=== PATIENT | male | born 1940 | race Caucasian/White ===

== ENCOUNTER 2020-08-28 21:03 | Inpatient (IN) | payer MEDICARE, BC ==
[2020-08-28 22:00] LABS: #Eosinphils 0.1 10x3/uL (0.0-0.5); #Neutrophils 5.2 10x3/uL (1.5-8.4); %Basophils 0.4 % (0.0-2.0); %Eosinophils 1.4 % (0.0-6.0); %Lymphocytes 27.7 % (18.0-47.0); %Monocytes 10.8 % (0.0-10.0); %Neutrophils 58.3 % (40.0-75.0); Hemoglobin 14.9 g/dL (13.5-17.5); Mean Corpuscular HGB CONC 35.6 g/dL (32.0-36.0); Mean Corpuscular Hemoglobin 34.2 pg (27.0-33.0); Mean Corpuscular Volume 96.1 fl (81.2-95.1); Mean Platelet Volume 9.2 fl (7.4-10.4); Platelet Count 337 10x3/uL (150-450); RBC Distribution Width 12.7 % (11.5-14.5); Red Blood Cell (RBC) Count 4.36 10x6/uL (4.32-5.72)
[2020-08-28 22:09] LABS: Bilirubin Neg (Negative); Blood, Urine Negative (Negative); Clarity Clear (Clear); Glucose, Urine (Dipstick) Normal (Negative); Ketone, Urine Negative (Negative); Leukocyte Negative (Negative); Nitrite Negative (Negative); Protein, Urine (Dipstick) Negative (Neg-Trace); Urobilinogen Normal mg/dL (Less than 2)
[2020-08-28 22:12] LABS: Acetaminophen Less than 6.0 mcg/mL (10.0-30.0); Alcohol 13 mg/dL (Less than 10); Salicylate Less than 8.0 mg/dL (15.0-30.0)
[2020-08-28 22:13] LABS: ALT (SGPT) 26 U/L (8-55); AST (SGOT) 20 U/L (5-34); Albumin 4.6 g/dL (3.4-4.8); Alkaline Phosphatase 91 U/L (40-110); Anion Gap 17 mmol/L (10-20); BUN (Urea Nitrogen) 19 mg/dL (8.4-25.7); Bilirubin, Total 0.5 mg/dL (0.2-1.2); Calc. Creatinine Clearance 0 mL/min (70-130); Calcium 10.4 mg/dL (7.8-10.44); Carbon Dioxide 24 mmol/L (23-31); Chloride 96 mmol/L (98-107); Globulin 2.5 g/dL (2.4-3.5); Glucose 127 mg/dL (83-110); Potassium 4.5 mmol/L (3.5-5.1); Protein, Total 7.1 g/dL (5.8-8.1); Sodium 132 mmol/L (136-145)
[2020-08-28 22:18] LABS: Amphetamine Not Detected (NotDetected); Barbiturates Screen Not Detected (NotDetected); Benzodiazepine Screen Detected (NotDetected); Cocaine Metabolite Screen Not Detected (NotDetected); Methadone Not Detected (NotDetected); Methamphetamine Not Detected (NotDetected); Opiate Screen Not Detected (NotDetected); Oxycodone Screen Not Detected (NotDetected); Phencyclidine (PCP) Not Detected (NotDetected); THC/Cannabinoid Screen Not Detected (NotDetected); Tricyclic Screen Not Detected (NotDetected)
[2020-08-28] MEDS ORDERED: Labetalol HCl 100 MG/20 ML VIAL ONE (22:33)
[2020-08-28] MEDS ORDERED: Acetaminophen 325 MG TAB PO PRN (23:37)
[2020-08-28] MEDS ORDERED: Senokot S 8.6-50 MG TAB PO PRN (23:37)
[2020-08-28] MEDS ORDERED: Calcium Carbonate 500 MG ChewTAB PO PRN (23:37)
[2020-08-28] MEDS ORDERED: Ondansetron PF 4 MG/2 ML Vial IVP PRN (23:37)
[2020-08-28] MEDS ORDERED: Sodium Chloride 0.9% 1,000 ML IV SCH (23:45)
[2020-08-29] MEDS: Thiamine HCl 200 MG/2 ML VIAL SLOW IVP SCH (01:11)
[2020-08-29] MEDS ORDERED: Amlodipine 10 MG TAB PO SCH (01:30)
[2020-08-29] MEDS ORDERED: Lorazepam 2 MG/ML VIAL ONE (02:30)
[2020-08-29] MEDS ORDERED: Lorazepam 2 MG/ML VIAL SLOW IVP SCH (02:45)
[2020-08-29 06:55] LABS: Anion Gap 11 mmol/L (10-20); BUN (Urea Nitrogen) 18 mg/dL (8.4-25.7); Calc. Creatinine Clearance 106 mL/min (70-130); Calcium 9.4 mg/dL (7.8-10.44); Carbon Dioxide 25 mmol/L (23-31); Cardiac Risk 2.7 (Less than 4.5); Chloride 99 mmol/L (98-107); Cholesterol 134 mg/dl (< 200 Desired); Glucose 139 mg/dL (83-110); HDL Cholesterol 49 mg/dL (>60 Neg Risk); LDL Cholesterol, Calculated 78 mg/dL; Potassium 4.9 mmol/L (3.5-5.1); Sodium 130 mmol/L (136-145); Triglycerides 33 mg/dL (Less than 150)
[2020-08-29 08:58] LABS: Hemoglobin A1c 6.3 % (4.0-6.0)
[2020-08-29] MEDS ORDERED: BIOTIN 10000 MCG PO SCH (09:00)
[2020-08-29] MEDS ORDERED: [UNRECOGNIZED DRUG - OTHER] PO SCH (09:00)
[2020-08-29] MEDS ORDERED: LUTEIN PO SCH (09:00)
[2020-08-29] MEDS ORDERED: GELATIN PO SCH (09:00)
[2020-08-29] MEDS ORDERED: ZEAXANTHIN PO SCH (09:00)
[2020-08-29] MEDS: Aspirin 325 mg Enteric Coated Tablet PO SCH (10:26)
[2020-08-29] MEDS: Enoxaparin Sodium 40 MG/0.4 ML SYRINGE SC SCH (10:26)
[2020-08-29] MEDS: Multivitamin W/ Minerals 1 TAB PO SCH (10:27)
[2020-08-29] MEDS: Cholecalciferol 1,000 UNITS (25 MCG) TAB PO SCH (10:27)
[2020-08-29] MEDS: Folic Acid 1 MG TAB PO SCH (10:27)
[2020-08-29] MEDS: Levothyroxine Sodium 75 MCG TAB PO SCH (10:27)
[2020-08-29] MEDS: Ascorbic Acid 500 mg Chewable Tablet PO SCH (10:27)
[2020-08-29] MEDS: Zinc Sulfate 220 MG CAP PO SCH (10:27)
[2020-08-29] MEDS: Cyanocobalamin (Vitamin B-12) 1,000 MCG TAB PO SCH (10:28)
[2020-08-29] MEDS: Losartan 25 MG TAB PO SCH ×2 (10:28→20:57)
[2020-08-29] MEDS: Sodium Bicarbonate Tab 325 MG TAB PO SCH ×3 (10:29→20:57)
[2020-08-29] MEDS: Famotidine 20 MG TAB PO SCH ×2 (10:29→20:57)
[2020-08-29] MEDS: Rosuvastatin 10 MG TAB PO SCH (10:29)
[2020-08-29 12:17] LABS: Vitamin B12 Greater than 2000 pg/mL (211-911)
[2020-08-29] MEDS: Vitamin A 10,000 UNITS CAP PO SCH (12:38)
[2020-08-29 16:18] LABS: SARS-CoV-2 PCR by NAA Not Detected (NotDetected)
[2020-08-29] MEDS ORDERED: Haloperidol Lactate 5 MG/ML VIAL SLOW IVP PRN (18:25)
[2020-08-29] MEDS: Mirtazapine 15 MG TAB PO SCH (20:57)
[2020-08-29] MEDS ORDERED: Lorazepam 2 MG/ML VIAL SLOW IVP PRN (23:43)
[2020-08-30 02:32] VITALS: BMI 29.7
[2020-08-30] MEDS: Thiamine HCl 200 MG/2 ML VIAL SLOW IVP SCH (02:33)
[2020-08-30] MEDS: Ascorbic Acid 500 mg Chewable Tablet PO SCH (08:19)
[2020-08-30] MEDS: Multivitamin W/ Minerals 1 TAB PO SCH (08:20)
[2020-08-30] MEDS: Cholecalciferol 1,000 UNITS (25 MCG) TAB PO SCH (08:20)
[2020-08-30] MEDS: Famotidine 20 MG TAB PO SCH ×2 (08:23→20:31)
[2020-08-30] MEDS: Cyanocobalamin (Vitamin B-12) 1,000 MCG TAB PO SCH (08:23)
[2020-08-30] MEDS: Levothyroxine Sodium 75 MCG TAB PO SCH (08:23)
[2020-08-30] MEDS: Losartan 25 MG TAB PO SCH ×2 (08:23→20:31)
[2020-08-30] MEDS: Aspirin 325 mg Enteric Coated Tablet PO SCH (08:23)
[2020-08-30] MEDS: Zinc Sulfate 220 MG CAP PO SCH (08:24)
[2020-08-30] MEDS: Sodium Bicarbonate Tab 325 MG TAB PO SCH ×4 (08:24→20:31)
[2020-08-30] MEDS: Rosuvastatin 10 MG TAB PO SCH (08:24)
[2020-08-30] MEDS: Vitamin A 10,000 UNITS CAP PO SCH (08:41)
[2020-08-30] MEDS: Enoxaparin Sodium 40 MG/0.4 ML SYRINGE SC SCH (08:41)
[2020-08-30] MEDS: Folic Acid 1 MG TAB PO SCH (08:41)
[2020-08-30 13:51] LABS: #Eosinphils 0.1 10x3/uL (0.0-0.5); #Monocytes 0.8 10x3/uL (0.0-1.1); #Neutrophils 4.5 10x3/uL (1.5-8.4); %Basophils 0.5 % (0.0-2.0); %Eosinophils 1.3 % (0.0-6.0); %Monocytes 9.7 % (0.0-10.0); %Neutrophils 58.7 % (40.0-75.0); Hemoglobin 13.5 g/dL (13.5-17.5); Mean Corpuscular HGB CONC 35.2 g/dL (32.0-36.0); Mean Corpuscular Hemoglobin 33.5 pg (27.0-33.0); Mean Platelet Volume 8.8 fl (7.4-10.4); Platelet Count 326 10x3/uL (150-450); RBC Distribution Width 12.9 % (11.5-14.5); Red Blood Cell (RBC) Count 4.03 10x6/uL (4.32-5.72); White Blood Cell (WBC) Count 7.7 10x3/uL (3.5-10.5)
[2020-08-30 14:07] LABS: Anion Gap 16 mmol/L (10-20); BUN (Urea Nitrogen) 21 mg/dL (8.4-25.7); Calc. Creatinine Clearance 104 mL/min (70-130); Calcium 9.2 mg/dL (7.8-10.44); Carbon Dioxide 22 mmol/L (23-31); Chloride 96 mmol/L (98-107); Glucose 117 mg/dL (83-110); Sodium 130 mmol/L (136-145)
[2020-08-30] MEDS: Mirtazapine 15 MG TAB PO SCH (20:31)
[2020-08-31] MEDS: Thiamine HCl 200 MG/2 ML VIAL SLOW IVP SCH (08:16)
[2020-08-31 08:45] LABS: Anion Gap 16 mmol/L (10-20); BUN (Urea Nitrogen) 18 mg/dL (8.4-25.7); Calc. Creatinine Clearance 108 mL/min (70-130); Calcium 9.7 mg/dL (7.8-10.44); Carbon Dioxide 23 mmol/L (23-31); Chloride 98 mmol/L (98-107); Glucose 120 mg/dL (83-110); Potassium 3.9 mmol/L (3.5-5.1); Sodium 133 mmol/L (136-145)
[2020-08-31] MEDS: Cyanocobalamin (Vitamin B-12) 1,000 MCG TAB PO SCH (08:53)
[2020-08-31] MEDS: Losartan 25 MG TAB PO SCH (08:54)
[2020-08-31] MEDS: Cholecalciferol 1,000 UNITS (25 MCG) TAB PO SCH (08:54)
[2020-08-31] MEDS: Rosuvastatin 10 MG TAB PO SCH (08:55)
[2020-08-31] MEDS: Sodium Bicarbonate Tab 325 MG TAB PO SCH (08:55)
[2020-08-31] MEDS: Ascorbic Acid 500 mg Chewable Tablet PO SCH (08:55)
[2020-08-31] MEDS: Aspirin 325 mg Enteric Coated Tablet PO SCH (08:55)
[2020-08-31] MEDS: Famotidine 20 MG TAB PO SCH (08:56)
[2020-08-31] MEDS: Levothyroxine Sodium 75 MCG TAB PO SCH (08:56)
[2020-08-31] MEDS: Folic Acid 1 MG TAB PO SCH (08:57)
[2020-08-31] MEDS: Enoxaparin Sodium 40 MG/0.4 ML SYRINGE SC SCH (08:57)
[2020-08-31] MEDS: Multivitamin W/ Minerals 1 TAB PO SCH (08:57)
[2020-08-31] MEDS: Zinc Sulfate 220 MG CAP PO SCH (08:59)
[2020-08-31] MEDS ORDERED: VITAMIN A 10000 UNIT PO SCH (09:00)
[2020-08-31] MEDS ORDERED: Thiamine HCl 200 MG/2 ML VIAL SLOW IVP SCH (09:00)
[2020-08-31 14:24] VITALS: BP 123/85; TEMP 97
== END 2020-08-31 15:20 | disposition home or self-care (01) | DRG 305 ==
LOC: CSHERS 21:03 → CSHTELE 08-29 00:21 → OBSVTOIN 08-29 17:01
PROVIDERS: ADMIT Student in an Organized Health Care Education/Training Program; ATTEND Family Medicine
DX: I16.0 Hypertensive urgency (principal); E87.1 Hypo-osmolality and hyponatremia; R45.851 Suicidal ideations; G93.49 Other encephalopathy; E78.5 Hyperlipidemia, unspecified; Z98.890 Other specified postprocedural states; Z95.828 Presence of other vascular implants and grafts; R73.9 Hyperglycemia, unspecified; I77.9 Disorder of arteries and arterioles, unspecified; M79.89 Other specified soft tissue disorders; J30.1 Allergic rhinitis due to pollen; R41.0 Disorientation, unspecified; M19.90 Unspecified osteoarthritis, unspecified site; Z20.822 Contact with and (suspected) exposure to COVID-19
CPT/HCPCS: 36415; 70450; 70551; 71045; 80048; 80053; 80061; 80306; 80307; 81003; 82607; 83036; 83605; 84443; 84484; 85025; 87635; 93005; 93306; 93880; 96372; 96374; G0378; J1630; J1650; J2060; J3411; J7050; U0003; U0005

== ENCOUNTER 2021-12-13 20:19 | Emergency (ER) | payer MEDICARE, BC ==
[2021-12-13 21:11] LABS: #Basophils 0.1 10x3/uL (0.0-0.2); #Eosinphils 0.1 10x3/uL (0.0-0.5); #Monocytes 1.1 10x3/uL (0.0-1.1); #Neutrophils 6.1 10x3/uL (1.5-8.4); %Basophils 0.7 % (0.0-2.0); %Eosinophils 1.2 % (0.0-6.0); %Lymphocytes 21.4 % (18.0-47.0); %Monocytes 11.8 % (0.0-10.0); %Neutrophils 64.1 % (40.0-75.0); Hemoglobin 13.4 g/dL (13.5-17.5); Mean Corpuscular HGB CONC 35.7 g/dL (32.0-36.0); Mean Corpuscular Hemoglobin 29.7 pg (27.0-33.0); Mean Corpuscular Volume 83.1 fl (81.2-95.1); Mean Platelet Volume 8.6 fl (7.4-10.4); Platelet Count 366 10x3/uL (150-450); RBC Distribution Width 14.7 % (11.5-14.5); Red Blood Cell (RBC) Count 4.51 10x6/uL (4.32-5.72); White Blood Cell (WBC) Count 9.5 10x3/uL (3.5-10.5)
[2021-12-13 21:22] LABS: PTT 29.8 sec (22.0-33.0); Prothrombin Time 10.4 sec (9.5-12.1)
[2021-12-13 21:25] LABS: ALT (SGPT) 27 U/L (8-55); AST (SGOT) 20 U/L (5-34); Albumin 4.1 g/dL (3.4-4.8); Alkaline Phosphatase 99 U/L (40-110); Anion Gap 14 mmol/L (10-20); BUN (Urea Nitrogen) 30 mg/dL (8.4-25.7); Bilirubin, Total 0.4 mg/dL (0.2-1.2); Calc. Creatinine Clearance 0 mL/min (70-130); Calcium 9.9 mg/dL (7.8-10.44); Carbon Dioxide 23 mmol/L (23-31); Chloride 91 mmol/L (98-107); Estimated GFR 89; Globulin 3.1 g/dL (2.4-3.5); Glucose 165 mg/dL (83-110); Potassium 3.9 mmol/L (3.5-5.1); Protein, Total 7.2 g/dL (5.8-8.1); Sodium 124 mmol/L (136-145)
[2021-12-13] MEDS ORDERED: Bacitracin 1 PK ONE ×2 (22:19→22:40)
[2021-12-13] MEDS ORDERED: Boostrix 0.5 ML (Tdap) VIAL ONE (22:29)
== END 2021-12-13 22:42 | disposition home or self-care (01) ==
LOC: CSHERS 20:19
DX: S51.811A Laceration without foreign body of right forearm, initial encounter (principal); S00.03XA Contusion of scalp, initial encounter; E87.1 Hypo-osmolality and hyponatremia; I10 Essential (primary) hypertension; W07.XXXA Fall from chair, initial encounter
CPT/HCPCS: 12002; 70450; 80053; 85025; 85610; 85730; 90471; 90715; 93005

== ENCOUNTER 2022-11-11 11:24 | Emergency (ER) | payer MEDICARE, BC ==
[~2022-11-11 11:24] MED LIST: Iopamidol 300 61% 100 ML VIAL FS ONE
[2022-11-11 12:08] LABS: #Basophils 0.1 10x3/uL (0.0-0.2); #Eosinphils 0.1 10x3/uL (0.0-0.5); #Monocytes 0.8 10x3/uL (0.0-1.1); #Neutrophils 5.6 10x3/uL (1.5-8.4); %Basophils 0.7 % (0.0-2.0); %Eosinophils 0.8 % (0.0-6.0); %Lymphocytes 14.1 % (18.0-47.0); %Monocytes 10.8 % (0.0-10.0); %Neutrophils 72.9 % (40.0-75.0); Hemoglobin 13.7 g/dL (13.5-17.5); Mean Corpuscular HGB CONC 37.3 g/dL (32.0-36.0); Mean Corpuscular Hemoglobin 32.9 pg (27.0-33.0); Platelet Count 456 10x3/uL (150-450); Red Blood Cell (RBC) Count 4.17 10x6/uL (4.32-5.72); White Blood Cell (WBC) Count 7.6 10x3/uL (3.5-10.5)
[2022-11-11 12:28] LABS: ALT (SGPT) 1176 U/L (8-55); AST (SGOT) 1534 U/L (5-34); Albumin 3.5 g/dL (3.4-4.8); Alkaline Phosphatase 1402 U/L (40-110); Anion Gap 17 mmol/L (10-20); BUN (Urea Nitrogen) 22 mg/dL (8.4-25.7); Bilirubin, Total 11.1 mg/dL (0.2-1.2); Calc. Creatinine Clearance 0 mL/min (70-130); Calcium 9.2 mg/dL (7.8-10.44); Carbon Dioxide 22 mmol/L (23-31); Chloride 92 mmol/L (98-107); Estimated GFR 87; Globulin 2.2 g/dL (2.4-3.5); Glucose 147 mg/dL (83-110); Potassium 4.7 mmol/L (3.5-5.1); Protein, Total 5.7 g/dL (5.8-8.1); Sodium 126 mmol/L (136-145)
[2022-11-11 13:49] LABS: INR-International Normal Ratio 1.1; PTT 28.3 sec (22.0-33.0); Prothrombin Time 11.4 sec (9.5-12.1)
[2022-11-11] MEDS ORDERED: hydrOXYzine 25 MG TAB ONE (15:44)
[2022-11-11 23:12] LABS: HBCM Index 0.05 S/CO (0-0.79); HBSAg Index 0.13 S/CO (0-0.99); Hep A IgM AB Non-Reactive S/CO (NonReactive); Hep A IgM S/CO 0.13 S/CO (0-0.79); Hep B Surf Ag Non-Reactive S/CO (NonReactive); Hep C IgG Ab Non-Reactive S/CO (NonReactive); Hep C Index 0.05 S/CO (0-0.79); Hepatitis B Core IgM Abs Non-Reactive S/CO (NonReactive)
== END 2022-11-11 19:29 | disposition short-term general hospital (02) ==
LOC: CSHERS 11:24
DX: R17 Unspecified jaundice (principal); K83.1 Obstruction of bile duct; R79.89 Other specified abnormal findings of blood chemistry; I25.10 Atherosclerotic heart disease of native coronary artery without angina pectoris; I10 Essential (primary) hypertension; E78.5 Hyperlipidemia, unspecified; Z79.82 Long term (current) use of aspirin; Z79.899 Other long term (current) drug therapy
CPT/HCPCS: 36415; 70450; 71045; 74177; 76705; 80053; 80074; 82140; 83690; 83880; 84484; 85025; 85610; 85730; 93005; 96360; 96361; Q9967

== ENCOUNTER → 2023-03-10 | Emergency (ER) | payer MEDICARE, BC ==
[~2023-03-10] MED LIST changes: +Aspirin Chewable 81 MG TAB ONE; +Aspirin Chewable 81 MG TAB PO SCH; +Cefepime 2 GM VIAL ONE; +Donepezil HCl 5 MG TAB PO SCH; +Levothyroxine Sodium 75 MCG TAB PO SCH; +Loratadine 10 MG TAB PO SCH; +Losartan 50 MG TAB PO SCH; +Rosuvastatin 20 MG TAB PO SCH; +Tamsulosin HCl 0.4 MG CAP ONE; +Tamsulosin HCl 0.4 MG CAP PO SCH; +Vancomycin 1 GM in Sodium Chloride 0.9% 250 ML 250 ML IVPB SCH; +Vancomycin 1.5 GRAM/300 ML BAG 1.5 GM in Premix 1 BAG IVPB SCH
[2023-03-10 12:14] LABS: Actual Bicarbonate (HCO3v) 16.8 mEq/L (22-28); Base Excess -6.7 mEq/L (-2 - +2); Calcium, Ionized (venous) 0.98 mmol/L (1.16-1.32); Chloride (VBG) 96 mmol/L (98-106); Hematocrit-VBG 44 % (42.0-52.0); Hemoglobin (Hb) 14.8 g/dL (12.6-17.4); Potassium (VBG) 4.38 mmol/L (3.70-5.30); Puncture Site Other Site; RapidComm Collect By LAB; Sodium 127 mmol/L (133-146); pH (venous) 7.385 (7.32-7.43)
[2023-03-10 12:18] LABS: Hematocrit 40.3 % (38.8-50.0); Hemoglobin 13.8 g/dL (13.5-17.5); Mean Corpuscular HGB CONC 34.2 g/dL (32.0-36.0); Mean Corpuscular Hemoglobin 32.4 pg (27.0-33.0); Mean Corpuscular Volume 94.6 fl (81.2-95.1); Mean Platelet Volume 9.6 fl (7.4-10.4); Platelet Count 294 10x3/uL (150-450); RBC Distribution Width 15.6 % (11.5-14.5); Red Blood Cell (RBC) Count 4.26 10x6/uL (4.32-5.72); White Blood Cell (WBC) Count 77.2 10x3/uL (3.5-10.5)
[2023-03-10 12:21] LABS: Prothrombin Time 10.6 sec (9.5-12.1)
[2023-03-10 12:25] LABS: ALT (SGPT) 30 U/L (8-55); AST (SGOT) 24 U/L (5-34); Albumin 3.6 g/dL (3.4-4.8); Alkaline Phosphatase 225 U/L (40-110); Anion Gap 17 mmol/L (10-20); BUN (Urea Nitrogen) 27 mg/dL (8.4-25.7); Bilirubin, Total 0.4 mg/dL (0.2-1.2); Calc. Creatinine Clearance 0 mL/min (70-130); Calcium 8.7 mg/dL (7.8-10.44); Carbon Dioxide 18 mmol/L (23-31); Chloride 98 mmol/L (98-107); Estimated GFR 88; Globulin 2.1 g/dL (2.4-3.5); Glucose 153 mg/dL (83-110); Magnesium 1.8 mg/dL (1.6-2.6); Potassium 4.6 mmol/L (3.5-5.1); Protein, Total 5.7 g/dL (5.8-8.1); Sodium 128 mmol/L (136-145)
[2023-03-10 12:28] LABS: Troponin I Less than 0.010 ng/mL (< 0.028)
[2023-03-10 12:29] LABS: Bilirubin Neg (Negative); Blood, Urine 25 (Negative); Clarity Cloudy (Clear); Glucose, Urine (Dipstick) Normal (Negative); Ketone, Urine Negative (Negative); Leukocyte 500 (Negative); Nitrite Negative (Negative); Protein, Urine (Dipstick) 15 mg/dl (Neg-Trace); Urobilinogen Normal mg/dL (Less than 2)
[2023-03-10 12:33] LABS: PTT 20.7 sec (22.0-33.0)
[2023-03-10 12:37] LABS: Bacteria/HPF 4+ HPF (None Seen); CAUTI Indications for Culture Alt mental st,lethar; Mucous/LPF 1+ LPF (<2+); RBC/HPF 0-3 HPF (0-3); Squamous Epithelial 0-3 HPF (0-3); Urine Culture Reflex Yes Yes; WBC/HPF Greater than 50 HPF (0-3)
[2023-03-10 12:45] LABS: Lipase Less than 4 U/L (8-78)
[2023-03-10 12:48] LABS: Band 20 % (5-11); Lymphocytes 5 % (21-51); Monocytes 1 % (0-10)
[2023-03-10 12:52] LABS: Hypersegmented Neutrophil SLIGHT; Neutrophil 74 % (42-75); Platelet Adequacy Comment Appears Adequate; RBC Morph Comment Within Normal Limits; Reflex for Review?? YES; Toxic Granulation SLIGHT
[2023-03-10 12:53] LABS: Dohle Bodies SLIGHT
[2023-03-10 12:55] LABS: MDiff Complete? YES
[2023-03-10 15:12] LABS: Lactic Acid 2.1 mmol/L (0.5-2.2)
[2023-03-11 08:01] LABS: ALT (SGPT) 21 U/L (8-55); AST (SGOT) 15 U/L (5-34); Albumin 2.9 g/dL (3.4-4.8); Alkaline Phosphatase 204 U/L (40-110); Anion Gap 13 mmol/L (10-20); BUN (Urea Nitrogen) 14 mg/dL (8.4-25.7); Bilirubin, Total 0.4 mg/dL (0.2-1.2); Calc. Creatinine Clearance 0 mL/min (70-130); Calcium 8.4 mg/dL (7.8-10.44); Carbon Dioxide 18 mmol/L (23-31); Chloride 104 mmol/L (98-107); Estimated GFR 95; Glucose 112 mg/dL (83-110); Potassium 4.7 mmol/L (3.5-5.1); Protein, Total 4.9 g/dL (5.8-8.1); Sodium 130 mmol/L (136-145)
[2023-03-11 08:02] LABS: Hematocrit 34.6 % (38.8-50.0); Mean Corpuscular HGB CONC 34.7 g/dL (32.0-36.0); Mean Corpuscular Hemoglobin 32.3 pg (27.0-33.0); Mean Platelet Volume 9.7 fl (7.4-10.4); Platelet Count 271 10x3/uL (150-450); RBC Distribution Width 15.4 % (11.5-14.5); Red Blood Cell (RBC) Count 3.72 10x6/uL (4.32-5.72); White Blood Cell (WBC) Count 47.3 10x3/uL (3.5-10.5)
[2023-03-11 08:24] LABS: Lipase Less than 4 U/L (8-78)
[2023-03-11 09:32] LABS: Band 12 % (5-11); Eosinophils 1 % (0-10); Lymphocytes 6 % (21-51); Monocytes 3 % (0-10); Neutrophil 78 % (42-75)
[2023-03-11 09:33] LABS: Dohle Bodies SLIGHT; Hypersegmented Neutrophil SLIGHT; Toxic Granulation MODERATE
[2023-03-11 09:34] LABS: Platelet Adequacy Comment Appears Adequate; RBC Morph Comment Within Normal Limits
[2023-03-11 09:36] LABS: MDiff Complete? YES
[2023-03-12 00:11] LABS: Anion Gap 12 mmol/L (10-20); BUN (Urea Nitrogen) 11 mg/dL (8.4-25.7); Calc. Creatinine Clearance 0 mL/min (70-130); Calcium 8.3 mg/dL (7.8-10.44); Carbon Dioxide 21 mmol/L (23-31); Chloride 98 mmol/L (98-107); Estimated GFR 100; Glucose 132 mg/dL (83-110); Potassium 3.1 mmol/L (3.5-5.1); Sodium 128 mmol/L (136-145)
[2023-03-12 00:34] LABS: Band 12 % (5-11); Lymphocytes 8 % (21-51); Monocytes 1 % (0-10); Reactive Lymphocytes 1 % (0-10)
[2023-03-12 00:38] LABS: Neutrophil 78 % (42-75)
[2023-03-12 00:39] LABS: MDiff Complete? YES
[2023-03-12 00:43] LABS: Hematocrit 36.1 % (38.8-50.0); Hemoglobin 12.7 g/dL (13.5-17.5); Mean Corpuscular HGB CONC 35.2 g/dL (32.0-36.0); Mean Corpuscular Volume 90.9 fl (81.2-95.1); Mean Platelet Volume 9.5 fl (7.4-10.4); Platelet Count 238 10x3/uL (150-450); RBC Distribution Width 15.1 % (11.5-14.5); Red Blood Cell (RBC) Count 3.97 10x6/uL (4.32-5.72); White Blood Cell (WBC) Count 53.8 10x3/uL (3.5-10.5)
== END ==
LOC: CSHERS 11:08
DX: N39.0 Urinary tract infection, site not specified (principal); A41.9 Sepsis, unspecified organism; C25.9 Malignant neoplasm of pancreas, unspecified; I10 Essential (primary) hypertension; E78.5 Hyperlipidemia, unspecified; Z79.899 Other long term (current) drug therapy; Z79.82 Long term (current) use of aspirin
CPT/HCPCS: 36415; 71045; 71260; 74177; 80053; 81001; 82805; 83605; 83690; 83735; 84484; 85025; 85060; 85610; 85730; 87040; 87077; 87086; 87186; 93005; 94760; J0692; J3370; J7050; Q9967